=== PATIENT | female | born 1995 | race Caucasian/White ===

== ENCOUNTER 2025-07-29 02:52 | Inpatient (IN) ==
[2025-07-29] MEDS ORDERED: LIDOCAINE 1% LOCAL 20 ML VIAL INFIL PRN (03:33)
[2025-07-29] MEDS ORDERED: LACTATED RINGER'S 1,000 ML IV PRN (03:33)
--- NOTE | 2025-07-29 04:05 | History & Physical Report ---
Date of Service July 29, 2025 Assessment & Plan (1) : Plan: anticipate normal delivery Admission and Anticipated Discharge Date Admission Date: July 29, 2025 History of Present Illness Chief Complaint: labor Primary Care Provider: Maddy Villeda MD 30 F P0000 at 39.5 weeks presents to L&D in active labor. GBS is negative. care has been uncomplicated. Allergies Allergy/AdvReac Type Severity Reaction Status Date / Time Sulfa (Sulfonamide Allergy Hives Verified 07/19/25 10:24 Antibiotics) Home Medications Medication Instructions Recorded Confirmed Type clindamycin phosphate 1 % lotion 1 applic topical DAILY #60 mL 10/29/22 07/29/25 Rx tretinoin 0.025 % topical cream 1 applic topical .COMPLEX #45 grams 10/29/22 07/29/25 Rx famotidine 20 mg tablet (Pepcid) 20 mg PO DAILY 07/19/25 07/29/25 History prenat.vits,gayatri,dwf-[id number] 1 tab PO DAILY 07/19/25 07/29/25 History Patient History Medical History PCOS (polycystic ovarian syndrome) Pelvic pain Anemia Broken arm Broken ankle Surgical History Mass of soft tissue of face benign postauricular LN 12/07/2019 History of ankle surgery WITH TENDON REPAIR H/O wisdom tooth extraction Family History Sister Asthma Mother No problems noted. Father No problems noted. Sister Endometriosis Brother Chromosome [id number] deletion syndrome Other Anxiety Depression Denies family history of Colon cancer Ovarian cancer Prostate cancer Myocardial infarction Breast cancer Social History Smoking Status: Never smoker Second Hand Exposure: No; Do You Dip or Chew Tobacco: No; Hx Alcohol Use: No Hx Substance Use: No Preferred Language: Romanian Communication Ability: Effective Visual Impairment: No Limitations Hearing Ability: Normal Account Clerk Required: No Beliefs That Will Affect Care: None marital status: Current Living Situation: Spouse current occupational status: employed 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 Feels Safe at Home: Yes Safety Concerns: Feels Safe At This Time Childhood Exposure to Second-Hand Smoke: No Diet: regular caffeine: Yes during the past year weight has: remained stable Dental Care, Regularly: Yes Physical Activity Frequency: Daily Seatbelt Use: always Sunscreen Use: Yes Assistive Devices: None OB History primip [employer]TER History neg Review of Systems All systems reviewed & are unremarkable except as noted in HPI & below Physical Exam Constitutional: WD/WN, vitals as above Eyes: PERRL, conjunctivae normal, anicteric sclerae Respiratory: normal respiratory effort Cardiovascular: Rate/Rhythm: regular rate and regular rhythm Gastrointestinal (Abdomen): Inspection/Auscultation: abdomen normal to inspection Musculoskeletal: Extremities: extremities normal to inspection Skin: no rashes, warm and dry Neurologic: patellar DTR's 2+ bilat, sensation intact Psychiatric: A+Ox3, euthymic affect Genitourinary: no vaginal lesions, no adnexal mass Manual OB Exam: + cervical dilation 8 cm, + cervical effacement 100%, + station 0 and + amniotic fluid clear OB Exam Monitor Tracing: + external FHT monitor used, + external uterine monitor used, + category I and + normal FHT variability AROM with Amni-hook clear Results & Data Vital Signs (Past 12 Hours) Vital Signs Temp Pulse Resp BP 07/29/25 03:16 74 120/77 07/29/25 03:11 36.6 C 18 Laboratory Results Laboratory Results - last 24 hr 07/29/25 03:45 WBC Pending RBC Pending Hgb Pending Hct Pending MCV Pending MCH Pending MCHC Pending Plt Count Pending Treponema pallidum Ab Pending Monitoring External Monitor Cat 1 (1) Weeks of gestation: 39 weeks Qualified Code(s): Z3A.39 - 39 weeks gestation of
[2025-07-29 04:07] LABS: Hematocrit (blood only) 35.3 % (37.0-47.0); Hemoglobin 11.2 g/dl (12.0-16.0); Mean Corpuscular Hemoglobin 25.1 pg (25.0-34.0); Mean Corpuscular Volume 79.1 fL (80.0-100.0); Platelet Count 245 K/uL (130-400); RDW Standard Deviation 43.8 fL (36.4-46.3); Red Blood Count 4.46 M/uL (4.20-5.40); White Blood Count 15.35 K/ul (4.8-10.8)
--- NOTE | 2025-07-29 04:19 | Labor Progress Brief Note ---
Date of Service July 29, 2025 Assessment & Plan Admission and Anticipated Discharge Date Admission Date: July 29, 2025 Physical Exam Genitourinary: Manual OB Exam: + cervical dilation 10 cm, + cervical effacement 100%, + station + 1 and + amniotic fluid clear OB Exam Monitor Tracing: + external FHT monitor used, + external uterine monitor used, + category I and + normal FHT variability will start to push Results & Data Vital Signs (Past 12 Hours) Vital Signs Temp Pulse Resp BP 07/29/25 03:16 74 120/77 07/29/25 03:11 36.6 C 18
[2025-07-29] MEDS: OXYTOCIN 30 UNITS/NSS 30 UNITS/500 ML BAG IV PRN (04:40)
[2025-07-29] MEDS ORDERED: BENZOCAINE 20% SPRY 85 APPLN/85 GM CAN EXT PRN (04:50)
[2025-07-29] MEDS ORDERED: OXYTOCIN 30 UNITS/NSS 30 UNITS/500 ML BAG IV PRN (04:50)
[2025-07-29] MEDS ORDERED: IBUPROFEN 600 MG TAB PO PRN (04:50)
[2025-07-29] MEDS ORDERED: ACETAMINOPHEN 325 MG TAB PO PRN (04:50)
[2025-07-29] MEDS ORDERED: HYDROCORTISONE ACETATE 25 MG SUPP PR PRN (04:50)
--- NOTE | 2025-07-29 04:54 | Delivery Summary ---
Vaginal Delivery Summary Date of Service July 29, 2025 Vaginal Delivery Summary live female ALLAN over intact perineum with nuchal cord x2 reduced at delivery. Delayed cord clamping followed by cord blood. Apgars 8/8 weight pending. Placenta delivered spontaneously and intact. No tears. QBL 95 ml. Final sponge and instrument count are correct. Mom and baby stable.
[2025-07-29] MEDS ORDERED: OXYTOCIN 20 UNITS in LACTATED RINGER'S 1,000 ML IV SCH (05:00)
[2025-07-29] MEDS: PRENATAL VITAMIN 1 TAB PO SCH (08:29)
[2025-07-29] MEDS: DOCUSATE SODIUM 100 MG CAP PO SCH (08:30)
[2025-07-29] MEDS: FAMOTIDINE 20 MG TAB PO SCH (08:30)
[2025-07-29] MEDS: FERROUS SULFATE 325 MG TAB PO SCH (08:30)
[2025-07-29] MEDS ORDERED: NON-FORMULARY MEDICATION (Clindamycin Phosphate 1 % lotion) TOP SCH (09:00)
[2025-07-29] MEDS ORDERED: NON-FORMULARY MEDICATION (Prenat.Vits,Cal,Min-Iron-Folic Tablet) PO SCH (09:00)
[2025-07-29] MEDS: DIPHTHER/TETAN/PERTUS Vaccine (Tdap, Adol/Adult) 0.5mL IM ONE (20:53)
[2025-07-30 04:33] VITALS: O2SAT 96
[2025-07-30 06:47] LABS: Hematocrit (blood only) 32.7 % (37.0-47.0); Hemoglobin 10.8 g/dl (12.0-16.0); Mean Corpuscular Hemoglobin 26.2 pg (25.0-34.0); Mean Corpuscular Volume 79.2 fL (80.0-100.0); Platelet Count 240 K/uL (130-400); RDW Standard Deviation 44.5 fL (36.4-46.3); Red Blood Count 4.13 M/uL (4.20-5.40); White Blood Count 14.84 K/ul (4.8-10.8)
--- NOTE | 2025-07-30 08:51 | Obstetrical Progress Note ---
Date of Service July 30, 2025 Subjective Ambulation: ambulating normally Voiding: no voiding problems Passing Gas:: Yes Diet Tolerance:: regular diet Lochia:: Small Feeding Type:: breast feeding Current Pain Level(1-10): 0 doing well. plans for d/c today. Physical Exam Constitutional WD/WN, vitals as above Gastrointestinal (Abdomen) Inspection/Auscultation: abdomen normal to inspection abdomen soft and non-tender. fundus firm below U. Musculoskeletal Extremities: extremities normal to inspection Skin no rashes, warm and dry Neurologic patellar DTR's 2+ bilat, sensation intact Psychiatric A+Ox3, euthymic affect Results & Data Vital Signs (Past 12 Hours) Vital Signs Temp Pulse Resp BP Pulse Ox O2 Del Method 07/30/25 04:10 36.8 C 79 16 109/69 96 Room Air 07/29/25 23:40 36.7 C 87 16 111/70 97 Room Air Laboratory Results 07/29/25 07/30/25 03:45 06:16 WBC 15.35 H 14.84 H RBC 4.46 4.13 L Hgb 11.2 L 10.8 L Hct 35.3 L 32.7 L MCV 79.1 L 79.2 L MCH 25.1 26.2 MCHC 31.7 L 33.0 RDW Std Deviation 43.8 44.5 RDW Coeff of Gregory 15.5 H 15.6 H Plt Count 245 240 MPV 11.3 11.8 Treponema pallidum Ab Negative
[2025-07-30 11:02] VITALS: BP 113/75; PULSE 89; RESP 18; TEMP 98.6
== END 2025-07-30 14:20 | disposition home or self-care (01) | DRG 807 ==
LOC: OPB 02:52 → 4S1 03:00 → 4E2 07:25